=== PATIENT | female | born 1985 | race American Indian/Alaskan Native ===

== ENCOUNTER 2017-03-16 20:27 | Emergency (ER) | payer MEDICAID ==
[2017-03-16 21:09] VITALS: BP 138/88
[2017-03-17] MEDS ORDERED: NORCO 5/325 PO ONE (03:48)
[2017-03-17] MEDS ORDERED: ZOFRAN ODT PO ONE (03:48)
[2017-03-17] MEDS ORDERED: MOTRIN PO ONE (03:49)
--- NOTE | 2017-03-17 03:52 | Emergency Department Report ---
ED ENT HPI - General Chief complaint: Dental/Oral Stated complaint: HEADACHE Time Seen by Provider: 03/17/17 03:25 Source: patient Mode of arrival: Ambulatory Limitations: No Limitations - History of Present Illness Initial comments: 31F p/w c/o toothache x2 weeks, left sided, intermittent pain. Deneis pus or blood drainage from mouth. Speaking in full sentences, no trismus or drooling or stridor noted. Deneis fevers or chills. States she has not had cavity addressed by a dentist and had had dental abscess before. MD complaint: tooth pain Onset/Timin -: week(s) Location: tooth # 1 - dental cavity here Severity: moderate Severity scale (0 -10): 6 Quality: aching Consistency: constant Improves with: none Worsens with: eating Context- Dental: history of dental caries, poor dental care Associated Symptoms: gum swelling, toothache - Related Data Previous Rx's Medication Instructions Recorded Last Taken Type Amoxicillin [Trimox CAP] 500 mg PO Q8H #30 capsule 03/17/17 Unknown Rx Benzocaine [Orajel Liquid 20%] 1 ml MM Q6HR PRN #1 bottle 03/17/17 Unknown Rx Chlorhexidine Mouthwash [Peridex] 15 ml MM BID #1 bottle 03/17/17 Unknown Rx HYDROcodone/APAP 5-325 [[place] 1 each PO Q6HR PRN #12 tablet 03/17/17 Unknown Rx 5/325] Ibuprofen [Motrin] 800 mg PO Q8HR PRN #30 tablet 03/17/17 Unknown Rx Allergies Allergy/AdvReac Type Severity Reaction Status Date / Time No Known Allergies Allergy Verified 03/16/17 21:09 ED Dental HPI - General Chief complaint: Dental/Oral Stated complaint: HEADACHE Time Seen by Provider: 03/17/17 03:25 Source: patient Mode of arrival: Ambulatory Limitations: No Limitations - Related Data Previous Rx's Medication Instructions Recorded Last Taken Type Amoxicillin [Trimox CAP] 500 mg PO Q8H #30 capsule 03/17/17 Unknown Rx Benzocaine [Orajel Liquid 20%] 1 ml MM Q6HR PRN #1 bottle 03/17/17 Unknown Rx Chlorhexidine Mouthwash [Peridex] 15 ml MM BID #1 bottle 03/17/17 Unknown Rx HYDROcodone/APAP 5-325 [[place] 1 each PO Q6HR PRN #12 tablet 03/17/17 Unknown Rx 5/325] Ibuprofen [Motrin] 800 mg PO Q8HR PRN #30 tablet 03/17/17 Unknown Rx Allergies Allergy/AdvReac Type Severity Reaction Status Date / Time No Known Allergies Allergy Verified 03/16/17 21:09 ED Review of Systems ROS: Stated complaint: HEADACHE Other details as noted in HPI Constitutional: denies: chills, fever Eyes: denies: eye pain, eye discharge, vision change ENT: dental pain. denies: ear pain, throat pain Respiratory: denies: cough, shortness of breath, wheezing Cardiovascular: denies: chest pain, palpitations Endocrine: no symptoms reported Gastrointestinal: denies: abdominal pain, nausea, diarrhea Genitourinary: denies: urgency, dysuria, discharge Musculoskeletal: denies: back pain, joint swelling, arthralgia Skin: denies: rash, lesions Neurological: denies: headache, weakness, paresthesias Psychiatric: denies: anxiety, depression Hematological/Lymphatic: denies: easy bleeding, easy bruising ED Past Medical Hx - Past Medical History Previous Medical History?: Yes Hx Headaches / Migraines: Yes Additional medical history: anemia - Surgical History Past Surgical History?: Yes Hx Appendectomy: Yes Additional Surgical History: - Social History Smoking Status: Current Every Day Smoker Substance Use Type: Alcohol - Medications Home Medications: Home Medications Medication Instructions Recorded Confirmed Last Taken Type Amoxicillin [Trimox CAP] 500 mg PO Q8H #30 capsule 03/17/17 Unknown Rx Benzocaine [Orajel Liquid 20%] 1 ml MM Q6HR PRN #1 bottle 03/17/17 Unknown Rx Chlorhexidine Mouthwash [Peridex] 15 ml MM BID #1 bottle 03/17/17 Unknown Rx HYDROcodone/APAP 5-325 [[place] 1 each PO Q6HR PRN #12 tablet 03/17/17 Unknown Rx 5/325] Ibuprofen [Motrin] 800 mg PO Q8HR PRN #30 tablet 03/17/17 Unknown Rx ED Physical Exam - General Limitations: No Limitations General appearance: alert, in no apparent distress - Head Head exam: Present: atraumatic, normocephalic - Eye Eye exam: Present: normal appearance, PERRL, EOMI - ENT ENT exam: Present: mucous membranes moist - Expanded ENT Exam Expanded Teeth exam: Present: dental caries, dental tenderness # 1 - Dental Tenderness - Neck Neck exam: Present: normal inspection - Respiratory Respiratory exam: Present: normal lung sounds bilaterally. Absent: respiratory distress - Cardiovascular Cardiovascular Exam: Present: regular rate, normal rhythm. Absent: systolic murmur, diastolic murmur, rubs, gallop - GI/Abdominal GI/Abdominal exam: Present: soft, normal bowel sounds - Extremities Exam Extremities exam: Present: normal inspection - Back Exam Back exam: Present: normal inspection - Neurological Exam Neurological exam: Present: alert, oriented X3 - Psychiatric Psychiatric exam: Present: normal affect, normal mood - Skin Skin exam: Present: warm, dry, intact, normal color. Absent: rash ED Course Vital Signs 03/16/17 03/16/17 03/16/17 20:50 21:00 21:09 Temperature 98.4 F 98.4 F Pulse Rate 96 H 96 H Respiratory 18 18 Rate Blood Pressure 138/104 158/104 Blood Pressure 138/88 [Left] O2 Sat by Pulse 99 100 Oximetry 03/17/17 04:03 Temperature Pulse Rate 69 Respiratory 16 Rate Blood Pressure Blood Pressure [Left] O2 Sat by Pulse 98 Oximetry ED Medical Decision Making - Medical Decision Making A/P: dental cavities 1- Motrin when necessary, amoxicillin ten-day course, Orajel when necessary, Peridex mouthwash daily basis, short course [place] 2- I provided patient with information for multiple dental clinics to follow up and stressed the importance of dental follow-up as he has multiple cavities that require dental fixation or instrumentation 3- no clinical signs of facial abscess, no Jamison's angina, no induration or cellulitis of floor of mouth or tongue 4- patient able to tolerate by mouth before discharge 5- no signs of facial infection. Advised patient that if she does not take antibiotics with follow-up with a dentist as soon as possible that a can result in potentially serious or dangerous infection to develop in jaw or face. Patient states that he understood these instructions. I advised patient to return to the ED for any persistent unrelenting nausea or vomiting fever or chills or headaches. Critical care attestation.: If time is entered above; I have spent that time in minutes in the direct care of this critically ill patient, excluding procedure time. ED Disposition Clinical Impression: Toothache, Left facial pain Disposition: TO HOME OR SELFCARE Is pt being admited?: No Does the pt Need Aspirin: No Condition: Stable Instructions: Dental Caries (ED), Toothache (ED) Prescriptions: Amoxicillin [Trimox CAP] 500 mg PO Q8H #30 capsule Benzocaine [Orajel Liquid 20%] 1 ml MM Q6HR PRN #1 bottle PRN Reason: Toothache Chlorhexidine Mouthwash [Peridex] 15 ml MM BID #1 bottle HYDROcodone/APAP 5-325 [[place] 5/325] 1 each PO Q6HR PRN #12 tablet PRN Reason: Pain Ibuprofen [Motrin] 800 mg PO Q8HR PRN #30 tablet PRN Reason: Toothache Referrals: [facility] [Outside] - 3-5 Days Forms: Work/School Release Form(ED) Time of Disposition: 03:49
== END 2017-03-17 04:03 | disposition home or self-care (01) ==
LOC: ED 20:27
DX: K08.89 Other specified disorders of teeth and supporting structures (principal); R51 Headache; D64.89 Other specified anemias; F17.200 Nicotine dependence, unspecified, uncomplicated; Z98.890 Other specified postprocedural states
CPT/HCPCS: 99282; Q0162

== ENCOUNTER 2020-09-14 09:28 | Emergency (ER) | payer SELFPAY ==
[2020-09-14 10:11] VITALS: BP 117/85
--- NOTE | 2020-09-14 10:11 | Event Note ---
ED Screening Note ED Screening Note: EPIGASTRIC PAIN PAIN ON PALPATION NAUSEA NO VOMITING NO DYSURIA OR BACK PAIN LMP LAST MONTH CANT TELL ME DATE This initial assessment/diagnostic orders/clinical plan/treatment(s) is/are subject to change based on patients health status, clinical progression and re- assessment by fellow clinical providers in the ED. Further treatment and workup at subsequent clinical providers discretion. Patient/guardian urged not to elope from the ED as their condition may be serious if not clinically assessed and managed. Initial orders include: LABS UA
[2020-09-14 11:26] LABS: Basophils % (Auto) 0.2 % (0.0-1.8); Eosinophils # (Auto) 0.1 K/mm3 (0.0-0.4); Eosinophils % (Auto) 0.7 % (0.0-4.3); Hematocrit 26.8 % (30.3-42.9); Hemoglobin 8.6 gm/dl (10.1-14.3); Lymphocytes # (Auto) 1.6 K/mm3 (1.2-5.4); Lymphocytes % (Auto) 12.4 % (13.4-35.0); Mean Corpuscular HGB Conc 32 % (30-34); Monocytes # (Auto) 0.6 K/mm3 (0.0-0.8); Monocytes % (Auto) 4.4 % (0.0-7.3); Platelet Count 263 K/mm3 (140-440); Red Blood Count 4.34 M/mm3 (3.65-5.03)
[2020-09-14 11:49] LABS: Alanine Aminotransferase 9 units/L (7-56); Albumin 4.2 g/dL (3.9-5); Blood Urea Nitrogen 6 mg/dL (7-17); Calcium 8.6 mg/dL (8.4-10.2); Hemolysis Index 0
[2020-09-14 11:55] LABS: Mean Corpuscular Volume 62 fl (79-97); Red Cell Distribution Width 20.3 % (13.2-15.2)
[2020-09-14 11:56] LABS: BUN/Creatinine Ratio 10; Bilirubin,Direct < 0.2 mg/dL (0-0.2)
[2020-09-14] MEDS ORDERED: ONDANSETRON 4 MG ODT TAB PO ONE (12:15)
[2020-09-14] MEDS ORDERED: MORPHINE 2 MG/1 ML INJ IV ONE ×2 (12:56→15:25)
[2020-09-14] MEDS ORDERED: SODIUM CHLORIDE 0.9% 1000 ML 1,000 ML IV ONE (12:56)
--- NOTE | 2020-09-14 12:57 | Emergency Department Report ---
ED Abdominal Pain HPI - General Chief Complaint: Abdominal Pain Stated Complaint: ABD PAINS PUI?: No Time Seen by Provider: 09/14/20 10:11 Source: patient Mode of arrival: Ambulatory Limitations: No Limitations - History of Present Illness Initial Comments: Patient is a 35-year-old -Portuguese female that comes to the emergency room complaining of abdominal pain. Pain started abruptly this morning.On exam in [facility] she had diffuse abdominal pain. She was moaning. She had no nausea and vomiting while in the ER. Patient has taken nothing for the pain prior to arrival. She has not seen a doctor prior to coming to the ER. MD Complaint: abdominal pain -: Gradual, days(s) Location: diffuse Migration to: no migration Severity scale (0 -10): 10 Quality: aching Consistency: constant Improves With: nothing Worsens With: nothing Associated Symptoms: denies other symptoms, nausea, vomiting. denies: diarrhea, fever, chills, constipation, dysuria, hematemesis, hematochezia, melena, hematuria, anorexia, syncope - Related Data Previous Rx's Medication Instructions Recorded Last Taken Type Ciprofloxacin HCl 500 mg PO BID #20 tablet 09/14/20 Unknown Rx Dicyclomine [Bentyl] 20 mg PO QID PRN #12 tablet 09/14/20 Unknown Rx Famotidine [Pepcid] 20 mg PO DAILY #30 tablet 09/14/20 Unknown Rx Ondansetron [Zofran Odt] 4 mg PO Q8HR PRN #10 tab.rapdis 09/14/20 Unknown Rx traMADoL [Ultram] 50 mg PO Q6HR PRN #10 tablet 09/14/20 Unknown Rx Allergies Allergy/AdvReac Type Severity Reaction Status Date / Time No Known Allergies Allergy Verified 03/16/17 21:09 ED Review of Systems ROS: Stated complaint: ABD PAINS Other details as noted in HPI Comment: All other systems reviewed and negative ED Past Medical Hx - Past Medical History Previous Medical History?: Yes Hx Headaches / Migraines: Yes Additional medical history: anemia - Surgical History Hx Appendectomy: Yes Additional Surgical History: - Family History Family history: no significant - Social History Smoking Status: Current Every Day Smoker Substance Use Type: Alcohol - Medications Home Medications: Home Medications Medication Instructions Recorded Confirmed Last Taken Type Ciprofloxacin HCl 500 mg PO BID #20 tablet 09/14/20 Unknown Rx Dicyclomine [Bentyl] 20 mg PO QID PRN #12 tablet 09/14/20 Unknown Rx Famotidine [Pepcid] 20 mg PO DAILY #30 tablet 09/14/20 Unknown Rx Ondansetron [Zofran Odt] 4 mg PO Q8HR PRN #10 tab.rapdis 09/14/20 Unknown Rx traMADoL [Ultram] 50 mg PO Q6HR PRN #10 tablet 09/14/20 Unknown Rx ED Physical Exam - General Limitations: No Limitations General appearance: alert, in no apparent distress - Head Head exam: Present: atraumatic, normocephalic - Eye Eye exam: Present: normal appearance - ENT ENT exam: Present: mucous membranes moist - Neck Neck exam: Present: normal inspection - Respiratory Respiratory exam: Present: normal lung sounds bilaterally. Absent: respiratory distress - Cardiovascular Cardiovascular Exam: Present: regular rate, normal rhythm. Absent: systolic murmur, diastolic murmur, rubs, gallop - GI/Abdominal GI/Abdominal exam: Present: soft, tenderness, normal bowel sounds - Extremities Exam Extremities exam: Present: normal inspection - Back Exam Back exam: Present: normal inspection - Neurological Exam Neurological exam: Present: alert, oriented X3 - Psychiatric Psychiatric exam: Present: normal affect, normal mood - Skin Skin exam: Present: warm, dry, intact, normal color. Absent: rash ED Course Vital Signs 09/14/20 09/14/20 09/14/20 10:10 14:19 16:56 Temperature 98.8 F Pulse Rate 96 H Respiratory 18 16 16 Rate Blood Pressure 117/85 [Right] O2 Sat by Pulse 100 Oximetry 09/14/20 17:55 Temperature Pulse Rate 87 Respiratory 20 Rate Blood Pressure [Right] O2 Sat by Pulse 98 Oximetry - Reevaluation(s) Reevaluation #1: 09/14/20 12:58 on reexam continued diffuse abd pain crying on my entry to room labs noted ua pending no cva tenderness no dysuria or discharge preg neg will need CT ED Medical Decision Making - Lab Data Result diagrams: 09/14/20 10:42 09/14/20 10:42 - Radiology Data Radiology results: report reviewed, image reviewed see report - Medical Decision Making Labs 09/14/20 09/14/20 09/14/20 10:42 10:42 10:42 WBC 13.3 H RBC 4.34 Hgb 8.6 L Hct 26.8 L MCV 62 L MCH 20 L MCHC 32 RDW 20.3 H Plt Count 263 Lymph % (Auto) 12.4 L King % (Auto) 4.4 Eos % (Auto) 0.7 Baso % (Auto) 0.2 Lymph # (Auto) 1.6 King # (Auto) 0.6 Eos # (Auto) 0.1 Baso # (Auto) 0.0 Seg Neutrophils % 82.3 H Seg Neutrophils # 10.9 H Sodium 139 Potassium 4.0 Chloride 101.3 Carbon Dioxide 23 Anion Gap 19 BUN 6 L Creatinine 0.6 Estimated GFR > 60 BUN/Creatinine Ratio 10 Glucose 146 H Calcium 8.6 Total Bilirubin < 0.20 Direct Bilirubin < 0.2 Indirect Bilirubin 0.0 AST 14 ALT 9 Alkaline Phosphatase 48 Total Protein 7.8 Albumin 4.2 Albumin/Globulin Ratio 1.2 Lipase 37 HCG, Qual HCG, Quant < 2 09/14/20 10:42 WBC RBC Hgb Hct MCV MCH MCHC RDW Plt Count Lymph % (Auto) King % (Auto) Eos % (Auto) Baso % (Auto) Lymph # (Auto) King # (Auto) Eos # (Auto) Baso # (Auto) Seg Neutrophils % Seg Neutrophils # Sodium Potassium Chloride Carbon Dioxide Anion Gap BUN Creatinine Estimated GFR BUN/Creatinine Ratio Glucose Calcium Total Bilirubin Direct Bilirubin Indirect Bilirubin AST ALT Alkaline Phosphatase Total Protein Albumin Albumin/Globulin Ratio Lipase HCG, Qual Negative HCG, Quant Vital Signs 09/14/20 09/14/20 10:10 14:19 Temperature 98.8 F Pulse Rate 96 H Respiratory 18 16 Rate Blood Pressure 117/85 [Right] O2 Sat by Pulse 100 Oximetry Labs noted. WBC slightly elevated Lipase LFTs and creatinine normal negative UA noted. Treated with fluidsand antiemetics -symptoms improved. CT of the abdomen noted. Patient treated with a dose of cefepime and Flagyl while in the ER. On reevaluation patient reports feeling better. She is taking p.o. states that her pain is gone. I reviewed all the above findings with the patient. Including her abnormal CAT scan. I have explained to her that she will need to follow-up with PCP SERV[facility] TRAINER and potentially GI if these problems persist. Sending patient home on [place] for will provide GI as well as coverage. Patient discharged home with discharge plan of care including medications, diet, follow-up. Patient verbalizes understanding of this. On discharge she is ambulatory nontoxic [id number] and taking p.o. - Differential Diagnosis ro preg/uti/pylo/choley/pancreatitis Critical care attestation.: If time is entered above; I have spent that time in minutes in the direct care of this critically ill patient, excluding procedure time. ED Disposition Clinical Impression: Ovarian cyst, Fibroid, Enteritis, UTI (urinary tract infection) Disposition: TO HOME OR SELFCARE Is pt being admited?: No Does the pt Need Aspirin: No Condition: Stable Instructions: Viral Gastroenteritis, Adult, [id number], Uterine Fibroids, [id number], Urinary Tract Infection, Adult, Ovarian Cyst, [id number], Abdominal Pain (ED) Additional Instructions: meds as ordered today stay well hydrated with water tylenol for pain - avoid motrin follow up with obgyn next week for care of fibroids and cyst follow up with pcp next week for reevaluation of your colitis. bentyl is good for your abd pain; as is the pepcid Prescriptions: Dicyclomine [Bentyl] 20 mg PO QID PRN #12 tablet PRN Reason: Pain, Moderate (4-6) Ciprofloxacin HCl 500 mg PO BID #20 tablet Famotidine [Pepcid] 20 mg PO DAILY #30 tablet traMADoL [Ultram] 50 mg PO Q6HR PRN #10 tablet PRN Reason: Pain Ondansetron [Zofran Odt] 4 mg PO Q8HR PRN #10 tab.rapdis PRN Reason: Vomiting Referrals: JUANA BANEGAS MD [Staff Physician] - 3-5 Days Time of Disposition: 15:24
--- NOTE | 2020-09-14 14:37 | Cat Scan Report ---
CT ABDOMEN AND PELVIS WITH CONTRAST HISTORY: Diffuse abdominal pain COMPARISON: None. TECHNIQUE: Axial CT images were obtained through the abdomen and pelvis after 100 cc of IV contrast. Sagittal and coronal reformatted images. All CT scans at this location are performed using CT dose re duction for ALARA by means of automated exposure control. FINDINGS: CT ABDOMEN: Lung Bases: Clear. Liver: No significant abnormality. Biliary: No significant abnormality. Spleen: No significant abnormality. Unenlarged. Pancreas: No significant abnormality. Adrenals: No significant abnormality. Kidneys: No significant abnormality. Lymphatics: No lymphadenopathy. Vasculature: No significant abnormality. Bowel/Peritoneum: Mild diffuse bowel wall thickening is suggested which could represent a mild nonspe cific enteritis. The colon is unremarkable. The appendix is not identified. No free fluid, free air o r fluid collection. Appendix is not identified. CT PELVIS: : The uterus is enlarged. There is a large submucosal fibroid in the left lateral wall measuring 7. 5 cm. A 3.8 cm right ovarian cyst is identified. A 3.9 cm left ovarian cyst is identified. The bladde r is unremarkable. Osseous Structures: No significant abnormality. Additional Findings: None IMPRESSION: Large uterine fibroid. Bilateral ovarian cysts as described. Questionable findings for a mild enteritis as described. Signer Name: Jose Daniel Montilla Jr, MD Signed: 09/14/2020 2:32 PM Workstation Name: [id number]
[2020-09-14] MEDS ORDERED: metroNIDAZOLE/NS 500 MG/100 ML 500 MG/100 ML BAG IV ONE (14:39)
[2020-09-14] MEDS ORDERED: ONDANSETRON 4 MG/2 ML INJ IV ONE (15:26)
[2020-09-14 15:34] LABS: Bacteria,Urine 1+ /HPF (Negative); Bilirubin,Urine NEG (Negative); Blood,Urine NEG (Negative); Color,Urine Yellow (Yellow); Mucus,Urine FEW /HPF; Urobilinogen,Urine < 2.0 mg/dL (<2.0)
[2020-09-14] MEDS ORDERED: CEFEPIME 0.5 GM in SODIUM CHLORIDE 0.9% 100 ML IV ONE (15:39)
[2020-09-14] MEDS ORDERED: FAMOTIDINE 20 MG TAB PO ONE (15:45)
== END 2020-09-14 17:55 | disposition home or self-care (01) ==
LOC: ED 09:28
DX: N83.209 Unspecified ovarian cyst, unspecified side (principal); D21.9 Benign neoplasm of connective and other soft tissue, unspecified; K52.9 Noninfective gastroenteritis and colitis, unspecified; N39.0 Urinary tract infection, site not specified; G43.909 Migraine, unspecified, not intractable, without status migrainosus; F17.200 Nicotine dependence, unspecified, uncomplicated; Z86.2 Personal history of diseases of the blood and blood-forming organs and certain disorders involving the immune mechanism; Z90.49 Acquired absence of other specified parts of digestive tract; Z98.890 Other specified postprocedural states; Z72.89 Other problems related to lifestyle; Z79.899 Other long term (current) drug therapy
CPT/HCPCS: 36415; 74177; 80048; 80076; 81001; 83690; 84702; 84703; 85025; 87086; 96361; 96365; 96368; 96375; 96376; 99284; J0692; J2270; J2405; J7030; Q9967; Q0162